=== PATIENT | male | born 1990 | race Caucasian/White ===

== ENCOUNTER → 2023-02-26 | Outpatient (REF) | payer BC ==
[~2023-02-26] MED LIST: CEFTRIAXON2 GM/50 ML IV; FEROSUL325 MG PO; HYDROCODON-ACE1 EA12 PO; LIDOCAINE VISC 2% SOLN 15 ML UDC ONE; ROCEPHIN IV
== END ==
LOC: WCC 08:14
PROVIDERS: ATTEND Plastic Surgery
DX: S41.102D Unspecified open wound of left upper arm, subsequent encounter (principal); S61.401D Unspecified open wound of right hand, subsequent encounter

== ENCOUNTER → 2023-02-28 | Outpatient (REF) | payer BC ==
[~2023-02-28] MED LIST changes: -LIDOCAINE VISC 2% SOLN 15 ML UDC ONE
== END ==
LOC: WCC 08:37
PROVIDERS: ATTEND Plastic Surgery
DX: S41.102D Unspecified open wound of left upper arm, subsequent encounter (principal); S61.401D Unspecified open wound of right hand, subsequent encounter

== ENCOUNTER → 2023-03-02 | Outpatient (REF) | payer BC | LOC: WCC 16:44 | PROVIDERS: ATTEND Plastic Surgery | DX: S41.102D Unspecified open wound of left upper arm, subsequent encounter (principal); S61.401D Unspecified open wound of right hand, subsequent encounter ==

== ENCOUNTER → 2023-03-07 | Outpatient (REF) | payer BC | LOC: WCC 08:40 | PROVIDERS: ATTEND Plastic Surgery | DX: S41.102D Unspecified open wound of left upper arm, subsequent encounter (principal); S61.401D Unspecified open wound of right hand, subsequent encounter ==

== ENCOUNTER → 2023-03-09 | Outpatient (REF) | payer BC ==
[~2023-03-09] MED LIST changes: +LIDOCAINE VISC 2% SOLN 15 ML UDC ONE
== END ==
LOC: WCC 14:54
PROVIDERS: ATTEND Plastic Surgery
DX: S41.102D Unspecified open wound of left upper arm, subsequent encounter (principal); S61.401D Unspecified open wound of right hand, subsequent encounter

== ENCOUNTER → 2023-03-12 | Outpatient (REF) | payer BC | LOC: WCC 08:44 | PROVIDERS: ATTEND Plastic Surgery | DX: S41.102D Unspecified open wound of left upper arm, subsequent encounter (principal); S61.401D Unspecified open wound of right hand, subsequent encounter ==

== ENCOUNTER → 2023-03-15 | Outpatient (REF) | payer BC ==
[~2023-03-15] MED LIST changes: -LIDOCAINE VISC 2% SOLN 15 ML UDC ONE
== END ==
LOC: WCC 09:04
PROVIDERS: ATTEND Plastic Surgery
DX: T81.89XA Other complications of procedures, not elsewhere classified, initial encounter (principal); S41.102D Unspecified open wound of left upper arm, subsequent encounter; S61.401D Unspecified open wound of right hand, subsequent encounter

== ENCOUNTER → 2023-03-19 | Outpatient (REF) | payer BC | LOC: WCC 08:21 | PROVIDERS: ATTEND Plastic Surgery | DX: T81.89XA Other complications of procedures, not elsewhere classified, initial encounter (principal); S41.102D Unspecified open wound of left upper arm, subsequent encounter; S61.401D Unspecified open wound of right hand, subsequent encounter ==

== ENCOUNTER → 2023-04-09 | Outpatient (REF) | payer BC | LOC: WCC 08:46 | PROVIDERS: ATTEND Plastic Surgery | DX: T81.89XA Other complications of procedures, not elsewhere classified, initial encounter (principal); S41.102D Unspecified open wound of left upper arm, subsequent encounter; S61.401D Unspecified open wound of right hand, subsequent encounter ==